=== PATIENT | male | born 1990 | race Caucasian/White ===

== ENCOUNTER 2024-10-04 03:40 | Emergency (ER) | payer MEDICAID ==
[~2024-10-04] VITALS: Ht 172.7 cm; Wt 99.8 kg
[~2024-10-04 03:40] MED LIST: POTA25TA7 PO
[2024-10-04 04:21] LABS: BASOPHILS % (AUTO) 0.3 % (0.0-2.0); EOSINOPHILS % (AUTO) 0.3 % (0.0-7.0); HEMATOCRIT 42.4 % (36.7-47.1); HEMOGLOBIN 14.7 g/dL (12.5-16.3); LYMPHOCYTES # (AUTO) 1.2 K/uL (0.8-4.8); LYMPHOCYTES % (AUTO) 10.3 % (20.5-51.5); MEAN CORPUSCULAR HEMOGLOBIN 30.8 uug (23.8-33.4); MEAN CORPUSCULAR HGB CONC 35 g/dL (32.5-36.3); MEAN CORPUSCULAR VOLUME 89.1 fL (73.0-96.2); MONOCYTES % (AUTO) 8.2 % (0.0-11.0); NEUTROPHILS # (AUTO) 9.4 K/uL (1.8-8.9); NEUTROPHILS % (AUTO) 80.9 % (38.5-71.5); PLATELET COUNT (AUTO) 316 K/uL (152-348); RED BLOOD CELL COUNT(AUTO) 4.76 MIL/uL (4.06-5.63); RED CELL DISTRIBUTION WIDTH 14.5 % (12.1-16.2); WHITE BLOOD COUNT (AUTO) 11.7 K/uL (3.6-10.2)
[2024-10-04] MEDS ORDERED: LORAZEPAM 2 MG/1 ML VIAL ONE (04:28)
[2024-10-04] MEDS: LORAZEPAM 2 MG/1 ML VIAL IV ONE (04:35)
[2024-10-04 04:41] LABS: ALANINE AMINOTRANSFERASE 167 U/L (16-63); ALBUMIN 4.3 g/dL (3.4-5.0); ALKALINE PHOSPHATASE 57 U/L (50-136); ASPARTATE AMINOTRANSFERASE 136 U/L (15-37); BILIRUBIN,TOTAL 1.7 mg/dL (0.2-1.0); CALCIUM 9.9 mg/dL (8.5-10.1); CARBON DIOXIDE 24 mmol/L (21-32); CHLORIDE 102 mmol/L (98-107); CREATININE 1.6 mg/dL (0.6-1.3); GLUCOSE 102 mg/dL (74-106); NT-PRO BNP 37 pg/mL (0-125); POTASSIUM 3.3 mmol/L (3.5-5.1); SODIUM SERUM 144 mmol/L (136-145); TOTAL PROTEIN, SERUM 8.5 g/dL (6.4-8.2); UREA NITROGEN, BLOOD 19 mg/dL (7-18)
[2024-10-04 05:01] LABS: ETHANOL < 3 MG/DL (0-10)
[2024-10-04 05:29] LABS: *CLARITY,URINE CLOUDY (CLEAR); *COLOR,URINE DARK YELLOW (YELLOW); *KETONES,URINE TRACE (NEGATIVE); *PROTEIN,URINE 1+ (NEGATIVE); LEUKOCYTE ESTERASE ,URINE 1+ (NEGATIVE); NITRITE, URINE POSITIVE (NEGATIVE); PH,URINE 5.5 (5.0-8.0); UGLUCOSE NEGATIVE (NEGATIVE)
[2024-10-04 05:44] LABS: *BLOOD, URINE TRACE (NEGATIVE)
[2024-10-04 05:45] LABS: *BILIRUBIN,URIN 1+ (NEGATIVE)
[2024-10-04 05:53] LABS: BACTERIA,URINE MANY /HPF (NONE SEEN); SQUAMOUS EPITHELIAL CELL,UR FEW /HPF (NONE SEEN); YEAST,URINE MODERATE /HPF (NONE SEEN)
[2024-10-04 06:00] LABS: *AMPHETAMINE, URINE POSITIVE (NEGATIVE); *BARBITURATE, URINE NEGATIVE (NEGATIVE); *BENZODIAZEPINE, URINE NEGATIVE (NEGATIVE); *CANNABINOID, URINE NEGATIVE (NEGATIVE); *COCCAINE, URINE NEGATIVE (NEGATIVE); *OPIATE, URINE NEGATIVE (NEGATIVE); *PHENCYCLIDINE SCREEN,URINE NEGATIVE (NEGATIVE); FENTANYL, URINE NEGATIVE (NEGATIVE)
[2024-10-04] MEDS: IV NS 1000 ML 1,000 ML IV ONE ×2 (06:10→06:12)
[2024-10-04] MEDS ORDERED: FLUC150T PO (06:20)
[2024-10-04] MEDS ORDERED: CEPH500T PO (06:20)
[2024-10-04] MEDS: CLONIDINE HCL 0.2 MG TABLET PO ONE (06:27)
[2024-10-04] MEDS: POTASSIUM CHLORIDE 20 MEQ TAB.PRT.SR PO ONE (06:27)
[2024-10-04 06:30] VITALS: BP 140/86; TEMP 98; O2SAT 97
== END 2024-10-04 06:31 | disposition home or self-care (01) ==
LOC: ER 03:43
DX: F15.10 Other stimulant abuse, uncomplicated (principal); R00.0 Tachycardia, unspecified; R06.02 Shortness of breath; M10.9 Gout, unspecified; F31.9 Bipolar disorder, unspecified
CPT/HCPCS: 36415; 71045; 84484; 85025; A4606; A4663; G0480; J2060; J7040